=== PATIENT | male | born 1970 | race Caucasian/White ===

== ENCOUNTER 2019-06-02 08:06 | Outpatient (CLI) | payer OTHER ==
--- NOTE | 2019-06-02 13:12 | CT ---
CT OF RIGHT UPPER EXTREMITY PERFORMED WITH INTRAVENOUS CONTRAST ENHANCEMENT WITH 3D RECONSTRUCTIONS: HISTORY: Evaluation for aneurysm post cardiac cath performed at the wrist. Having pain in right wrist and rig ht hand numbness. FINDINGS: A good arterial study was obtained. Examination was begun at mid humerus level which shows brachial arteries with one of these brachial branches supplying the anterior and posterior interosseous arteri es. The posterior interosseous arteries are not seen beyond the distal radius. This is probably jus t a developmental finding. The radial and ulnar arteries are patent. I do not see any signs of any aneurysm. I do not see any evidence for dissection. Only the wrist portion of the hand was included in this study and no abnormalities detected in this region. IMPRESSION: Unremarkable CT angio of the upper extremity as described above. POS: OFF
== END 2019-06-02 08:07 | disposition home or self-care (01) ==
LOC: CT 08:06
PROVIDERS: ATTEND Orthopaedic Surgery Hand Surgery
DX: I72.9 Aneurysm of unspecified site (principal); I70.208 Unspecified atherosclerosis of native arteries of extremities, other extremity

== ENCOUNTER 2019-06-19 14:58 | Day surgery (SDC) | payer OTHER ==
[~2019-06-19 14:58] MED LIST: Bupivacaine PF 0.75% SDV 10 ML ONE; CEFAZOLIN 1 GM VIAL ONE; Lidocaine 1% PF 5 ML VIAL ONE; Lidocaine 4% PF 5 ML AMP ONE; Maxitrol 0.1% Opth Oint 3.5 GM TUBE ONE; Ondansetron PF 4 MG/2 ML Vial ONE; PROPOFOL 200 MG/20 ML VIAL ONE; Triamcinolone 40 MG/ML VIAL ONE
[2019-06-19] MEDS ORDERED: Fluorouracil 100 MG, Enoxaparin Sodium 25 MG, EPINEPHrine 0.3 MG in Ophthalmic Irrigati... IRR SCH (15:27)
[2019-06-19] MEDS ORDERED: Phenylephrine 2.5% Ophth Soln 5 ML BOT FS SCH (15:27)
[2019-06-19] MEDS ORDERED: Cyclopentolate 1% Opth Drop 2 ML BOT FS SCH (15:27)
[2019-06-19] MEDS ORDERED: Phenylephrine 2.5% Ophth Soln 5 ML BOT ONE (15:31)
[2019-06-19] MEDS ORDERED: Cyclopentolate 1% Opth Drop 2 ML BOT ONE (15:31)
[2019-06-19] MEDS ORDERED: Midazolam HCl 2 mg/2 ml Vial ONE ×2 (16:33→17:56)
[2019-06-19] MEDS ORDERED: Fentanyl 100 MCG/2 ML VIAL ONE (17:56)
[2019-06-19] MEDS ORDERED: Ondansetron PF 4 MG/2 ML Vial ONE (19:36)
--- NOTE | 2019-06-19 19:38 | OP ---
DATE OF PROCEDURE: 06/19/2019 PREOPERATIVE DIAGNOSIS: Rhegmatogenous retinal detachment, right eye. POSTOPERATIVE DIAGNOSIS: Rhegmatogenous retinal detachment, right eye. PROCEDURES PERFORMED: Pars plana vitrectomy, retinal detachment repair, right eye. ANESTHESIA: General endotracheal anesthesia. DESCRIPTION OF PROCEDURE: The patient was prepped and draped in usual sterile manner for ophthalmic surgery. Right eye lid speculum was placed in the right eye and A 25-gauge trocar was placed in conjunctiva and sclera superotemporally, inferotemporally, and supranasally. Infusion line was placed inferotemporally. Light pipe vitreous cutter was inserted into the eye. Core vitrectomy was performed. Superior temporal retinal tear was identified. Vitreous traction was removed from the retinal tear. 360 trimming of the vitreous base was achieved using wide field viewing system. Peripheral laser was placed excepting the retinal detachment area using endolaser photocoagulation. Complete air-fluid exchange was performed with 10 minutes being left for fluid to drain posteriorly. Subretinal fluid was drained through the posterior drained retinotomy and the laser treatment was completed using Endolaser photocoagulation. 28% sulfur hexafluoride gas was infused into the eye. Supratemporal and supranasal sclerotomy suture closed with 6-0 plain gut suture. The eye was noted to retain pressure well. Retrobulbar Kenalog and subconjunctival Ancef were placed. Antibiotic ointment was placed. Eye was patched and shielded. The patient was taken to postoperative recovery unit in good condition having suffered no immediate perioperative complications. The patient was instructed to keep patch and shield on, avoid lifting or bending, position left side down or head up and followup appointment with Dr. Morrissey. Job ID: [id number]
== END 2019-06-19 20:40 | disposition home or self-care (01) ==
LOC: SDC 14:58
PROVIDERS: ATTEND Ophthalmology Retina Specialist
PROC: 08QE3ZZ Repair Right Retina, Percutaneous Approach (ICD-10-PCS; principal; 2019-06-19)
PROC: 08T43ZZ Resection of Right Vitreous, Percutaneous Approach (ICD-10-PCS; principal; 2019-06-19)
DX: H33.011 Retinal detachment with single break, right eye (principal); Z98.1 Arthrodesis status
CPT/HCPCS: 67025; J0171; J0690; J1650; J2001; J2250; J2405; J2704; J3010; J3301; J3490; J9190

== ENCOUNTER 2019-07-18 05:57 | Day surgery (SDC) | payer OTHER ==
[2019-07-17 12:35] VITALS: BMI 34.9
[2019-07-18] MEDS ORDERED: Midazolam HCl 2 mg/2 ml Vial ONE ×2 (06:18→07:06)
[2019-07-18] MEDS ORDERED: Fentanyl 100 MCG/2 ML VIAL ONE (06:18)
[2019-07-18] MEDS ORDERED: Bupivacaine PF 0.5% 30 ML VIAL ONE (06:29)
[2019-07-18] MEDS ORDERED: Betamet Acet/Betamet Na Ph 30 MG/5 ML VIAL ONE (06:29)
[2019-07-18] MEDS ORDERED: Bacitracin Zinc Ointment 30 gm TUBE ONE (06:29)
[2019-07-18 06:49] LABS: #Eosinphils 0.3 thou/uL (0.0-0.7); #Lymphocytes 1.9 thou/uL (1.20-3.40); #Monocytes 0.5 thou/uL (0.11-0.59); #Neutrophils 2.4 thou/uL (1.40-6.50); %Basophils 0.9 % (0.0-1.0); %Eosinophils 5.2 % (0.0-10.0); %Lymphocytes 36.4 % (21.0-51.0); %Monocytes 10.1 % (0.0-10.0); %Neutrophils 47.4 % (42.0-75.0); Hemoglobin 14.8 g/dL (14.0-18.0); Mean Corpuscular HGB CONC 32.9 g/dL (32.0-36.0); Mean Corpuscular Hemoglobin 28.7 pg (27.0-31.0); Mean Corpuscular Volume 87.2 fL (78.0-98.0); Mean Platelet Volume 7.5 fL (7.4-10.4); Platelet Count 214 thou/uL (130-400); RBC Distribution Width 12.1 % (11.5-14.5); Red Blood Cell (RBC) Count 5.14 mill/uL (4.70-6.10); White Blood Cell (WBC) Count 5.1 thou/uL (4.8-10.8)
[2019-07-18] MEDS ORDERED: Ketorolac Tromethamine 30 MG/ML VIAL ONE ×2 (09:23→11:51)
[2019-07-18] MEDS ORDERED: Lidocaine 1% PF 5 ML VIAL ONE (11:51)
[2019-07-18] MEDS ORDERED: Ondansetron PF 4 MG/2 ML Vial ONE (11:51)
[2019-07-18] MEDS ORDERED: PROPOFOL 200 MG/20 ML VIAL ONE (11:51)
[2019-07-18] MEDS ORDERED: Dexamethasone 20 MG/5 ML VIAL ONE (11:51)
--- NOTE | 2019-07-18 15:16 | OP ---
DATE OF PROCEDURE: 07/18/2019 PREOPERATIVE DIAGNOSES: 1. Carpal tunnel syndrome, right. 2. Right volar wrist ganglion. POSTOPERATIVE DIAGNOSES: 1. Carpal tunnel syndrome, right. 2. Right volar wrist ganglion. FINDINGS: 1. A 3.0 x 1.5 cm ganglion communicated with the scaphoid radial joint with marked amount of synovitis within the joint capsule itself via arthrotomy and a dual stalk. 2. Very tight transcarpal ligament with stippling over 1.5 cm area with early Hourglass formation of the median nerve within the carpal canal. PROCEDURES PERFORMED: 1. Carpal tunnel release, right wrist. 2. Volar ganglion cyst excision, right wrist. 3. Arthrotomy with synovectomy, radioscaphoid joint, right wrist. SPECIMEN: Ganglion. ANESTHESIA: 1. General, LMA technique augmented by 30 mL of 0.5% Marcaine block. 2. Celestone was given 2 mL in the carpal tunnel site and 3 at the ganglion cyst excision site intra-articular. DESCRIPTION OF PROCEDURE: After successful general endotracheal anesthesia, the limb was prepped and draped. The patient had time-out done appropriately. We then outlined the carpal tunnel incision in standard fashion in-line with the ring finger from medial and lateral and beginning 5 mm distal to the volar wrist flexion crease and ending at Chamberlain's cardinal line. We also outlined a zigzag incision just radial to a large ganglion, which appeared to be overlying in proximity to the radial artery based on pulse palpation. Already had negative studies for aneurysm. We then injected both areas with 10 mL of 0.5% Marcaine on each incision and we gave the final 10 after the incision was closed. Carpal tunnel incision was made first, carried through skin and subcutaneous tissue, identified the palmaris longus tendon and entering the tendon on its ulnar one-third. We carried this through the transverse carpal ligament until we saw undelying structures. From here, we dissected distally and performed release using combination of [place] blade and tenotomy scissors. We reversed our field. We did the same from the midportion proximally. Under direct visualization, we released the transcarpal ligament completely. We then visualized the nerve and saw motor branch intact, we saw the stippling with early hourglass formation. We placed Celestone on the wound and then closed it with interrupted 4-0 nylon. We then turned the attention to the ganglion site. The zigzag incision was 3 cm long, carried through skin and subcutaneous tissue until we dissected subcutaneously and saw the superficial branch of the radial artery on top of the ganglion. We dissected this from the ganglion and it. Just radial and deep along the ganglion's deep edge, on top of the joint surface was the dorsal branch of the radial artery, which was confluent, one wall of the ganglion to the artery. We this with blunt dissection and saw the ganglion was almost 3 cm with dual stalks to the radioscaphoid joint. We then made approximately a 1 cm long arthrotomy of the joint, removed both stalks, and then we did, we lifted up the mass but we saw a marked amount of synovitis, so performed a synovectomy as well intra-articular radioscaphoid joint. We had tagged a few vessel branches, we did electrocautery and placed a clip on these. We released the tourniquet and held 5 minutes of direct pressure. We then saw bleeding from the superficial arterial branch which we otherwise had excellent hemostasis. The Celestone was given intra-articular and we then closed this incision with excellent hemostasis using a 4-0 nylon interrupted mattress pattern. The patient then left the operating room with a volar splint, and a bulky dressing. No evidence of anesthetic or operative complication. Job ID: [id number]
== END 2019-07-18 10:50 | disposition home or self-care (01) ==
LOC: SDC 05:57
PROVIDERS: ATTEND Orthopaedic Surgery Hand Surgery
PROC: 0LB50ZZ Excision of Right Lower Arm and Wrist Tendon, Open Approach (ICD-10-PCS; principal; 2019-07-18)
PROC: 01N50ZZ Release Median Nerve, Open Approach (ICD-10-PCS; principal; 2019-07-18)
DX: G56.01 Carpal tunnel syndrome, right upper limb (principal); M67.431 Ganglion, right wrist
CPT/HCPCS: 36415; 85025; 88304; J0690; J0702; J1885; J2250; J3010; S0020

== ENCOUNTER 2020-06-10 19:30 | Outpatient (CLI) | payer OTHER | END 2020-06-10 19:31 | disposition home or self-care (01) | LOC: SLEEPLAB 19:30 | PROVIDERS: ATTEND Family Medicine | DX: G47.33 Obstructive sleep apnea (adult) (pediatric) (principal); R06.83 Snoring; R53.83 Other fatigue; R40.0 Somnolence | CPT/HCPCS: 95811 ==

== ENCOUNTER 2022-03-09 10:37 | Outpatient (CLI) | payer BC | END 2022-03-09 10:38 | disposition home or self-care (01) | LOC: DTY/OP 10:37 | PROVIDERS: ATTEND Surgery | DX: E66.01 Morbid (severe) obesity due to excess calories (principal) | CPT/HCPCS: 97802 ==

== ENCOUNTER 2022-05-30 06:05 | Inpatient (IN) | payer BC, OTHER, SELFPAY ==
[2022-05-26 12:55] VITALS: BMI 35.9
[2022-05-30] MEDS ORDERED: Bupivacaine/Epinephrine 0.25% 30 ML VIAL ONE (06:40)
[2022-05-30] MEDS ORDERED: fentaNYL Citrate/PF 100 MCG/2 ML SYRINGE ONE (06:43)
[2022-05-30] MEDS ORDERED: Scopolamine 1.5 mg/72 hour Patch ONE (07:23)
[2022-05-30] MEDS ORDERED: Midazolam HCl 2 mg/2 ml Vial ONE (07:23)
[2022-05-30] MEDS ORDERED: CEFAZOLIN 2 GM VIAL ONE (07:24)
[2022-05-30] MEDS ORDERED: Heparin 5,000 UNITS/ML VIAL ONE (07:24)
[2022-05-30] MEDS ORDERED: Sodium Chloride 0.9% 100 ML ONE (07:24)
[2022-05-30] MEDS ORDERED: HYDROmorphone 2 MG/ML VIAL ONE (07:40)
[2022-05-30] MEDS ORDERED: SUGAMMADEX SODIUM 200 MG/2 ML VIAL ONE (07:41)
[2022-05-30] MEDS ORDERED: Famotidine/PF 20 mg/2ml Vial ONE (07:41)
[2022-05-30] MEDS ORDERED: Lidocaine 1% MPF 2 ML VIAL ONE (07:54)
[2022-05-30] MEDS ORDERED: Dexamethasone 20 MG/5 ML VIAL ONE (07:54)
[2022-05-30] MEDS ORDERED: Rocuronium Bromide 10 MG/ML (10ML VIAL) ONE (07:54)
[2022-05-30] MEDS ORDERED: PROPOFOL 200 MG/20 ML VIAL ONE (07:54)
[2022-05-30] MEDS ORDERED: Ketorolac Tromethamine 30 MG/ML VIAL ONE (07:54)
[2022-05-30] MEDS ORDERED: Ondansetron PF 4 MG/2 ML Vial ONE ×2 (07:54→10:23)
[2022-05-30] MEDS ORDERED: Promethazine HCl 25 MG/ML VIAL IVPB PRN (08:26)
[2022-05-30] MEDS ORDERED: HYDROmorphone 2 MG/ML VIAL SLOW IVP PRN (08:26)
[2022-05-30] MEDS ORDERED: Ondansetron HCl/PF 4 MG/2 ML Vial IVP PRN (08:26)
[2022-05-30] MEDS ORDERED: Meperidine HCl/PF 25 MG/ML VIAL SLOW IVP PRN (08:26)
[2022-05-30] MEDS ORDERED: Ondansetron PF 4 MG/2 ML Vial IVP PRN ×2 (09:22→09:38)
[2022-05-30] MEDS ORDERED: hydrALAZINE 20 MG/ML VIAL SLOW IVP PRN (09:22)
[2022-05-30] MEDS ORDERED: Promethazine HCl 25 MG/ML VIAL IM PRN ×2 (09:22→09:38)
[2022-05-30] MEDS ORDERED: Dextrose 5% in Water 1,000 ML IV PRN (09:22)
[2022-05-30] MEDS ORDERED: diphenhydrAMINE 50 MG/ML VIAL IVP PRN ×2 (09:22→09:38)
[2022-05-30] MEDS ORDERED: Hydrocodone-Acetamin 15 ML UDCUP PO PRN (09:22)
[2022-05-30] MEDS ORDERED: Dextrose 50% Abboject 50 ML SYRINGE SLOW IVP PRN (09:22)
[2022-05-30] MEDS ORDERED: diphenhydrAMINE 25 MG CAP PO PRN (09:38)
[2022-05-30] MEDS ORDERED: diphenhydrAMINE 50 MG/ML VIAL IM PRN (09:38)
[2022-05-30] MEDS ORDERED: Zolpidem Tartrate 5 MG TAB PO PRN (09:38)
[2022-05-30] MEDS ORDERED: fentaNYL Citrate/PF 2,000 MCG in Sodium Chloride 0.9% 60 ML IV PRN (09:38)
[2022-05-30] MEDS ORDERED: Naloxone HCl 0.4 mg/ml Vial IV PRN (09:38)
[2022-05-30] MEDS ORDERED: Promethazine HCl 25 MG/ML VIAL ONE (09:41)
[2022-05-30] MEDS ORDERED: Communication Order-Pharmacy FS SCH (09:45)
[2022-05-30] MEDS ORDERED: Labetalol HCl 100 MG/20 ML VIAL ONE (10:10)
[2022-05-30] MEDS ORDERED: Promethazine HCl 12.5 MG in Sodium Chloride 0.9% 50 ML IVPB PRN (10:14)
[2022-05-30] MEDS ORDERED: Labetalol HCl 100 MG/20 ML VIAL SLOW IVP SCH (10:15)
[2022-05-30] MEDS: D5 1/2 NS w/20 mEq KCL 1,000 ML IV SCH ×2 (12:00→20:16)
[2022-05-31] MEDS: D5 1/2 NS w/20 mEq KCL 1,000 ML IV SCH ×2 (04:32→08:34)
[2022-05-31] MEDS ORDERED: Enoxaparin Sodium 40 MG/0.4 ML SYRINGE SC SCH (06:00)
[2022-05-31 06:09] LABS: #Lymphocytes 1.3 thou/uL (1.20-3.40); #Neutrophils 7.4 thou/uL (1.40-6.50); %Basophils 0.5 % (0.0-1.0); %Lymphocytes 13.6 % (21.0-51.0); %Monocytes 9.9 % (0.0-10.0); Hemoglobin 14.2 g/dL (14.0-18.0); Mean Corpuscular HGB CONC 32.6 g/dL (32.0-36.0); Mean Corpuscular Hemoglobin 29.8 pg (27.0-31.0); Mean Corpuscular Volume 91.3 fL (78.0-98.0); Mean Platelet Volume 8.5 fL (7.4-10.4); Platelet Count 173 thou/uL (130-400); RBC Distribution Width 12.3 % (11.5-14.5); Red Blood Cell (RBC) Count 4.76 mill/uL (4.70-6.10); White Blood Cell (WBC) Count 9.8 thou/uL (4.8-10.8)
[2022-05-31 06:24] LABS: Anion Gap 13 mmol/L (10-20); BUN (Urea Nitrogen) 12 mg/dL (8.4-25.7); Calc. Creatinine Clearance 155 mL/min (70-130); Calcium 8.6 mg/dL (7.8-10.44); Carbon Dioxide 26 mmol/L (22-29); Chloride 105 mmol/L (98-107); Estimated GFR 96; Glucose 120 mg/dL (70-105); Potassium 3.8 mmol/L (3.5-5.1); Sodium 140 mmol/L (136-145)
[2022-05-31 08:35] VITALS: BP 144/88
[2022-05-31 08:59] VITALS: TEMP 98.6
[2022-05-31] MEDS ORDERED: Lisinopril 20 MG TAB PO SCH (09:00)
[2022-05-31] MEDS ORDERED: Carvedilol 6.25 MG TAB PO SCH (09:00)
[2022-05-31] MEDS ORDERED: Pantoprazole 40 MG VIAL IVP SCH (09:00)
[2022-06-01] MEDS ORDERED: Enoxaparin Sodium 40 MG/0.4 ML SYRINGE SC SCH (09:00)
== END 2022-05-31 11:43 | disposition home or self-care (01) | DRG 621 ==
LOC: SURG A 06:05
PROVIDERS: ADMIT Surgery; ATTEND Surgery
PROC: 0DB64Z3 Excision of Stomach, Percutaneous Endoscopic Approach, Vertical (ICD-10-PCS; principal; 2022-05-30)
PROC: 0FT44ZZ Resection of Gallbladder, Percutaneous Endoscopic Approach (ICD-10-PCS; 2022-05-30)
PROC: 8E0W4CZ Robotic Assisted Procedure of Trunk Region, Percutaneous Endoscopic Approach (ICD-10-PCS; 2022-05-30)
DX: E66.01 Morbid (severe) obesity due to excess calories (principal); K80.20 Calculus of gallbladder without cholecystitis without obstruction; Z68.35 Body mass index [BMI] 35.0-35.9, adult; I10 Essential (primary) hypertension; G47.33 Obstructive sleep apnea (adult) (pediatric); E29.1 Testicular hypofunction
CPT/HCPCS: 36415; 80048; 85025; 88304; 88307; 94760; C1776; C9113; J0690; J1100; J1170; J1644; J1650; J1885; J2250; J2405; J2550; J2704; J3480; J3490; S0028